=== PATIENT | male | born 1950 | race Caucasian/White ===

== ENCOUNTER 2017-05-14 01:00 | Emergency (ER) | payer MEDICARE, BC ==
[2017-05-14 01:29] LABS: ABG PH 7.24 (7.35-7.45)
[2017-05-14 01:35] LABS: BILIRUBIN,TOTAL 0.5 mg/dl (0.2-1.0); CALCIUM 8.6 mg/dl (8.5-10.1); CREATININE 1.12 mg/dl (0.80-1.30); POTASSIUM 3.6 mMol/L (3.5-5.1)
[2017-05-14 01:37] LABS: HEMATOCRIT 35 % (39-53)
[2017-05-14 01:38] LABS: BASOPHILS % (AUTO) 1 % (0-3); EOSINOPHILS % (AUTO) 5 % (0-9); MEAN CORPUSCULAR HGB CONC 35.1 gm/dl (32.0-36.0); MEAN CORPUSCULAR VOLUME 88 fL (80-100); MONOCYTES % (AUTO) 10.3 % (0-12); NEUTROPHILS % (AUTO) 48.2 % (37-80)
[2017-05-14] MEDS ORDERED: SODIUM CHLORIDE 0.9% IV SCH (01:49)
[2017-05-14] MEDS ORDERED: NOREPINEPHRINE IV SCH (01:49)
[2017-05-14] MEDS ORDERED: NOREPINEPHRINE BITARTRATE 4 MG/4 ML SOL IV ONE (01:49)
[2017-05-14] MEDS ORDERED: SODIUM CHLORIDE 0.9% FLUSH 10 ML SOL IV PRN (02:27)
[2017-05-14 02:38] VITALS: TEMP 98.3
[2017-05-14 02:39] VITALS: RESP 14
[2017-05-14 02:40] VITALS: O2SAT 90
[2017-05-14 02:41] VITALS: BP 62/40; PULSE 64
== END 2017-05-14 02:08 | disposition short-term general hospital (02) | DRG 298 ==
LOC: ED 01:00
DX: I46.9 Cardiac arrest, cause unspecified (principal)
CPT/HCPCS: 36600; 71045; 80053; 82803; 84484; 85025; 85610; 85730; 93005; 99291; J3490

== ENCOUNTER 2018-04-21 09:45 | Emergency (ER) | payer MEDICARE, BC ==
[2018-04-21] MEDS ORDERED: SODIUM CHLORIDE 0.9% FLUSH 10 ML SOL IV PRN (09:54)
[2018-04-21] MEDS ORDERED: ONDANSETRON HCL 4 MG/2 ML SOL IV ONE (10:00)
[2018-04-21 10:02] LABS: BASOPHILS % (AUTO) 1 % (0-3); EOSINOPHILS % (AUTO) 2 % (0-9); HEMATOCRIT 37 % (39-53); HEMOGLOBIN 12.1 gm/dl (13.5-17.7); LYMPHOCYTES % (AUTO) 18.8 % (10-50); MEAN CORPUSCULAR HEMOGLOBIN 29.2 pg (27.0-32.0); MEAN CORPUSCULAR HGB CONC 32.5 gm/dl (32.0-36.0); MEAN CORPUSCULAR VOLUME 90 fL (80-100); MONOCYTES % (AUTO) 10.8 % (0-12); NEUTROPHILS % (AUTO) 67.6 % (37-80)
[2018-04-21] MEDS ORDERED: ONDANSETRON HCL 4 MG/2 ML SOL ONE (10:04)
[2018-04-21 10:15] LABS: INR 0.97 (0.86-1.12)
[2018-04-21] MEDS ORDERED: MECLIZINE HYDROCHLORIDE 12.5 MG TAB PO ONE (10:15)
[2018-04-21] MEDS ORDERED: MECLIZINE HYDROCHLORIDE 12.5 MG TAB ONE (10:17)
[2018-04-21 10:24] LABS: BLOOD UREA NITROGEN 36 mg/dl (7-18); CALCIUM 9.3 mg/dl (8.5-10.1); CHLORIDE 100 mMol/L (98-107); CREATINE KINASE 60 U/L (39-308); CREATININE 1.03 mg/dl (0.80-1.30); GLUCOSE 111 mg/dl (74-106); POTASSIUM 4.4 mMol/L (3.5-5.1); SODIUM 137 mMol/L (136-145); TROP I < 0.017 ng/ml (0.000-0.056)
[2018-04-21] MEDS ORDERED: DIAZEPAM 5MG/ML SOL IV ONE (11:30)
[2018-04-21] MEDS ORDERED: DIAZEPAM 5 MG TAB PO ONE (11:37)
[2018-04-21] MEDS ORDERED: DIAZEPAM 5 MG TAB ONE (11:39)
[2018-04-21 15:12] VITALS: TEMP 97
[2018-04-21 15:14] VITALS: O2SAT 98
[2018-04-21 15:15] VITALS: PULSE 61
[2018-04-21 15:16] VITALS: BP 118/72; RESP 19
== END 2018-04-21 13:29 | disposition home or self-care (01) | DRG 149 ==
LOC: ED 09:45
DX: R42 Dizziness and giddiness (principal); R61 Generalized hyperhidrosis; R11.10 Vomiting, unspecified; Z95.0 Presence of cardiac pacemaker
CPT/HCPCS: 36415; 71045; 80048; 82550; 84484; 85025; 85610; 85730; 93005; 96374; 99283; 99285; J2405; A9270-GY

== ENCOUNTER 2018-06-29 07:51 | Day surgery (SDC) | payer MEDICARE, BC ==
[~2018-06-29 07:51] MED LIST: LIDOCAINE HCL 1% MPF 30 SOL ONE; PROPOFOL 500 MG/50 ML EMU IV ONE
[2018-06-29 10:24] VITALS: RESP 20; TEMP 97.4
[2018-06-29 13:18] VITALS: BP 123/84; PULSE 69; O2SAT 96
== END 2018-06-29 11:25 | disposition home or self-care (01) | DRG 951 ==
LOC: SURG 07:51
PROVIDERS: ATTEND Surgery
DX: Z12.11 Encounter for screening for malignant neoplasm of colon (principal); K57.32 Diverticulitis of large intestine without perforation or abscess without bleeding; Z80.0 Family history of malignant neoplasm of digestive organs; Z86.010 Personal history of colon polyps; R19.5 Other fecal abnormalities; D50.9 Iron deficiency anemia, unspecified; D12.5 Benign neoplasm of sigmoid colon
CPT/HCPCS: J2001; J2704